=== PATIENT | male | born 1975 | race Caucasian/White ===

== ENCOUNTER 2020-09-23 19:50 | Emergency (ER) | payer SELFPAY ==
[2020-09-23] MEDS: Aspirin 81 MG Tab.EC PO ONE (20:10)
[2020-09-23] MEDS: Ticagrelor 90 MG Tab PO ONE (20:10)
[2020-09-23] MEDS: Heparin Sodium 5,000 Units/ML Vial IVPUSH ONE (20:10)
[2020-09-23] MEDS: Nitroglycerin/D5W 25 MG/250 ML BOTTLE IV SCH (20:15)
[2020-09-23] MEDS ORDERED: Heparin Sodium/D5W 25,000 UNITS/500 ML BAG IV SCH (20:15)
[2020-09-23] MEDS: Ondansetron 4 MG/2 ML SDV IVPUSH ONE (20:18)
--- NOTE | 2020-09-23 20:18 | EDM.PDOC ---
ED HPI GENERAL MEDICAL PROBLEM - General Chief Complaint: Chest Pain Stated Complaint: PAIN IN LT SIDE OF CHEST Time Seen by Provider: 09/23/20 20:03 Source of Information: Reports: Patient, Family - History of Present Illness INITIAL COMMENTS - FREE TEXT/NARRATIVE: Deon is a 45-year-old male presenting to the ED for evaluation of chest pain. Patient symptoms started around 1300 hrs. today. Has been associated with left arm pain and tingling. He has had some shortness of breath. Patient is a cigarette smoker and occasionally uses cannabis. He is full code. He denies any allergies. There is a family history of heart disease. He is otherwise healthy. He underwent a lap band procedure 10 years ago. He is from [facility] and is up here at [facility]. - Related Data Allergies Allergy/AdvReac Type Severity Reaction Status Date / Time No Known Allergies Allergy Verified 09/23/20 20:09 ED ROS GENERAL - Review of Systems Review Of Systems: See Below Constitutional: Reports: Diaphoresis HEENT: Reports: No Symptoms Respiratory: Reports: Shortness of Breath Cardiovascular: Reports: Chest Pain Endocrine: Reports: No Symptoms GI/Abdominal: Reports: Nausea Musculoskeletal: Reports: Arm Pain Skin: Reports: Diaphoresis Neurological: Reports: No Symptoms Psychiatric: Reports: No Symptoms Hematologic/Lymphatic: Reports: No Symptoms Immunologic: Reports: No Symptoms ED EXAM, GENERAL - Physical Exam Exam: See Below Exam Limited By: No Limitations General Appearance: Alert, Anxious, Moderate Distress Eye Exam: Bilateral Eye: EOMI, PERRL Throat/Mouth: Normal Inspection, Normal Oropharynx, Normal Voice, No Airway Compromise Head: Atraumatic, Normocephalic Neck: Normal Inspection, Supple, Non-Tender, Full Range of Motion Respiratory/Chest: No Respiratory Distress, Wheezing (Inspiratory and expiratory wheezes). No: Rales, Rhonchi Cardiovascular: Normal Peripheral Pulses, Regular Rate, Rhythm Peripheral Pulses: 2+: Radial (L), Radial (R), Posterior Tibial (L), Posterior Tibial (R) GI/Abdominal: Normal Bowel Sounds, Soft, Non-Tender Back Exam: Normal Inspection, Full Range of Motion Extremities: Normal Inspection, Normal Range of Motion, No Pedal Edema, Normal Capillary Refill Neurological: Alert, Oriented, Normal Cognition, No Motor/Sensory Deficits Psychiatric: Normal Affect, Normal Mood Skin Exam: Warm, Dry, Intact, Normal Color Lymphatic: No Adenopathy #1 Interpretation EKG Date: 09/23/20 Time: 19:55 Rhythm: NSR Rate (Beats/Min): 60 [place]: Normal P-Wave: Present QRS: Normal ST-T: Elevated (ST elevation in 2 3 aVF and reciprocal changes in V1 V2 and V3 consistent with a inferior posterior [place].) QT: Normal Comparison: NA - No Prior EKG Course - Orders/Labs/Meds Orders: Active Orders 24 hr Category Date Time Status Cardiac Monitoring [RC] STAT Care 09/23/20 20:04 Ordered Communication Order [RC] Per Unit Routine Care 09/23/20 20:04 Ordered Communication Order [RC] Per Unit Routine Care 09/23/20 20:04 Ordered EKG Documentation Completion [RC] ASDIRECTED Care 09/23/20 20:07 Ordered Oxygen Therapy [RC] ASDIRECTED Care 09/23/20 20:04 Ordered Chest 1V Frontal [CR] Stat Exams 09/23/20 20:04 Ordered BASIC METABOLIC PANEL,BMP [CHEM] Stat Lab 09/23/20 20:04 Ordered CBC WITH AUTO DIFF [HEME] Stat Lab 09/23/20 20:04 Ordered INR,PT,PROTHROMBIN TIME [COAG] Stat Lab 09/23/20 20:04 Ordered MAGNESIUM [CHEM] Stat Lab 09/23/20 20:04 Ordered PTT,PARTIAL THROMBOPLSTIN TIME [COAG] Stat Lab 09/23/20 20:04 Ordered TROPONIN I [CHEM] Stat Lab 09/23/20 20:04 Ordered Heparin Sodium/D5W [Heparin 25,000 Units in D5W 500 ML] Med 09/23/20 20:15 Ordered 25,000 units in 500 ml IV TITRATE Nitroglycerin/D5W [Nitroglycerin 25 MG/D5W 250 ML] Med 09/23/20 20:15 Ordered 25 mg in 250 ml IV TITRATE Ondansetron [Zofran] Med 09/23/20 20:04 Once 4 mg IVPUSH ONETIME ONE EKG 12 Lead [EK] Routine Ther 09/23/20 20:07 Ordered Medication Orders Nitroglycerin/Dextrose (Nitroglycerin 25 Mg/D5w 250 Ml) 25 mg in 250 mls @ 3 mls/hr IV TITRATE PHYLLIS; Protocol Heparin Sodium/Dextrose (Heparin 25,000 Units In D5w 500 Ml) 25,000 units in 500 mls @ 0 mls/hr IV TITRATE PHYLLIS; Protocol Meds: Medications Generic Name Dose Route Start Last Admin Trade Name Freq PRN Reason Stop Dose Admin Nitroglycerin/Dextrose 25 mg in 250 mls @ 3 mls/hr 09/23/20 20:15 Nitroglycerin 25 Mg/D5w 250 Ml IV TITRATE PHYLLIS Protocol 5 MCG/MIN Heparin Sodium/Dextrose 25,000 units in 500 mls @ 0 mls/hr 09/23/20 20:15 Heparin 25,000 Units In D5w 500 Ml IV TITRATE PHYLLIS Protocol 30 UNITS/KG/HR Discontinued Medications Generic Name Dose Route Start Last Admin Trade Name Freq PRN Reason Stop Dose Admin Aspirin 324 mg 09/23/20 20:04 Aspirin 81 Mg Tab.Ec PO 09/23/20 20:05 ONETIME ONE Heparin Sodium (Porcine) 4,000 units 09/23/20 20:04 Heparin Sodium 5,000 Units/Ml Vial IVPUSH 09/23/20 20:05 BOLUS ONE Ticagrelor 180 mg 09/23/20 20:04 Ticagrelor 90 Mg Tab PO 09/23/20 20:05 ONETIME ONE - Re-Assessments/Exams Free Text/Narrative Re-Assessment/Exam: 09/23/20 20:20 [address] with an [address] elevated [place]. We initiated STEMI procedures including initiation of heparin with a 4000 bolus and 30 units/kg/h infusion. The patient is on a nitro drip initiated at 5 mics per minute. He received aspirin 324 mg as well as Brilinta 180 mg p.o. Labs and EKG were performed again showing the ST elevated [place]. I discussed the case with Dr. Wills, lead rider at [facility] who accepts the patient for direct admission to the cardiac Entrepreneurship Program Director. Departure - Departure Time of Disposition: 20:23 Disposition: Admitted As Inpatient 64 Clinical Impression: STEMI (ST elevation myocardial infarction) Qualifiers: Involved coronary artery: right coronary artery Qualified Code(s): I21.11 - ST elevation (STEMI) myocardial infarction involving right coronary artery Referrals: PCP,None [Primary Care Provider] - Forms: ED Department Discharge Critical Care Note - Critical Care Note Total Time (mins): 30 Comments: "Critical care time of 30 minutes for arranging patient evaluation facilitation of transfer to cardiac Entrepreneurship Program Director. This excludes time for procedures. - Problem List & Annotations (1) STEMI (ST elevation myocardial infarction) SNOMED Code(s): 12027957 Code(s): I21.3 - ST ELEVATION (STEMI) MYOCARDIAL INFARCTION OF UNSP SITE Status: Acute Priority: High Current Visit: Yes Qualifiers: Involved coronary artery: right coronary artery Qualified Code(s): I21.11 - ST elevation (STEMI) myocardial infarction involving right coronary artery - My Orders Last 24 Hours: My Active Orders 09/23/20 20:04 Cardiac Monitoring [RC] STAT Communication Order [RC] Per Unit Routine Communication Order [RC] Per Unit Routine Oxygen Therapy [RC] ASDIRECTED Chest 1V Frontal [CR] Stat BASIC METABOLIC PANEL,BMP [CHEM] Stat CBC WITH AUTO DIFF [HEME] Stat INR,PT,PROTHROMBIN TIME [COAG] Stat MAGNESIUM [CHEM] Stat PTT,PARTIAL THROMBOPLSTIN TIME [COAG] Stat TROPONIN I [CHEM] Stat Ondansetron [Zofran] 4 mg IVPUSH ONETIME ONE 09/23/20 20:07 EKG Documentation Completion [RC] ASDIRECTED EKG 12 Lead [EK] Routine 09/23/20 20:15 Heparin Sodium/D5W [Heparin 25,000 Units in D5W 500 ML] 25,000 units in 500 ml IV TITRATE Nitroglycerin/D5W [Nitroglycerin 25 MG/D5W 250 ML] 25 mg in 250 ml IV TITRATE - Assessment/Plan Last 24 Hours: My Active Orders 09/23/20 20:04 Cardiac Monitoring [RC] STAT Communication Order [RC] Per Unit Routine Communication Order [RC] Per Unit Routine Oxygen Therapy [RC] ASDIRECTED Chest 1V Frontal [CR] Stat BASIC METABOLIC PANEL,BMP [CHEM] Stat CBC WITH AUTO DIFF [HEME] Stat INR,PT,PROTHROMBIN TIME [COAG] Stat MAGNESIUM [CHEM] Stat PTT,PARTIAL THROMBOPLSTIN TIME [COAG] Stat TROPONIN I [CHEM] Stat Ondansetron [Zofran] 4 mg IVPUSH ONETIME ONE 09/23/20 20:07 EKG Documentation Completion [RC] ASDIRECTED EKG 12 Lead [EK] Routine 09/23/20 20:15 Heparin Sodium/D5W [Heparin 25,000 Units in D5W 500 ML] 25,000 units in 500 ml IV TITRATE Nitroglycerin/D5W [Nitroglycerin 25 MG/D5W 250 ML] 25 mg in 250 ml IV TITRATE
[2020-09-23] MEDS: Heparin Sodium/D5W 25,000 UNITS/500 ML BAG IV SCH (20:32)
[2020-09-23] MEDS: Heparin Sodium/D5W 500 ML ONE (21:21)
--- NOTE | 2020-09-25 10:16 | CR ---
CHEST: Portable 09/23/2020 at 8:33 PM CLINICAL HISTORY:Chest pain COMPARISON:None FINDINGS: The heart size, pulmonary vascularity and hilar structures are normal. No infiltrate effusion or pneumothorax is seen. IMPRESSION: No acute cardiopulmonary process.
== END 2020-09-23 20:32 ==
LOC: JP.ED 19:50
DX: I21.11 ST elevation (STEMI) myocardial infarction involving right coronary artery (principal)
CPT/HCPCS: 36415; 71045; 71045-26; 80048; 83735; 84484; 85025; 85610; 85730; 93005; 93010; 96365; 96375; 99285-25; 99291; A9270-GY; J1644; J2405; J3490